=== PATIENT | female | born 1980 | race Caucasian/White ===

== ENCOUNTER 2025-01-21 06:17 | Day surgery (SDC) | payer OTHER, SELFPAY | END 2025-01-21 11:32 | disposition home or self-care (01) | LOC: GI 06:17 | PROVIDERS: ATTENDING PHYSICIAN Internal Medicine Gastroenterology | DX: Z12.11 Encounter for screening for malignant neoplasm of colon (principal); K64.8 Other hemorrhoids; D12.3 Benign neoplasm of transverse colon | CPT/HCPCS: 45380; 88305 ==

== ENCOUNTER → 2025-07-29 14:16 | Outpatient (REF) | payer OTHER, SELFPAY | LOC: RAD 14:16 | PROVIDERS: ATTENDING PHYSICIAN Internal Medicine Endocrinology, Diabetes & Metabolism; FAMILY PHYSICIAN Family Medicine | DX: E03.9 Hypothyroidism, unspecified (principal) | CPT/HCPCS: 76536 ==